=== PATIENT | male | born 1990 | race Caucasian/White ===

== ENCOUNTER 2019-11-13 20:41 | Emergency (ER) | payer SELFPAY ==
[2019-11-13] MEDS ORDERED: Bacitracin Oint 1 GM U/D Packet TOP ONE (21:06)
--- NOTE | 2019-11-13 21:07 | EDM.PDOC ---
ED HPI GENERAL MEDICAL PROBLEM - General Chief Complaint: Laceration Stated Complaint: LACERATION TO HEAD Time Seen by Provider: 11/13/19 20:50 Source of Information: Reports: Patient History Limitations: Reports: No Limitations - History of Present Illness INITIAL COMMENTS - FREE TEXT/NARRATIVE: 28-year-old male was sitting in a rifle when the scope kicked back and cut him between his eyes on the lower forehead. He has a headache and it bled so he wanted it checked. No active bleeding at this time. No loss of consciousness or visual changes. Mild nausea. Onset: Sudden Duration: Hour(s): (About an hour and a half ago) Location: Reports: Head Associated Symptoms: Reports: Other (Mild nausea and headache) Headache Pain Score (Numeric/FACES): 7 - Related Data Allergies Allergy/AdvReac Type Severity Reaction Status Date / Time No Known Allergies Allergy Verified 11/13/19 20:51 Home Meds: Home Meds NK [No Known Home Meds] 11/13/19 [History] Past Medical History Musculoskeletal History: Reports: Fracture - Past Surgical History Musculoskeletal Surgical History: Reports: ORIF Social & Family History - Tobacco Use Smoking Status *Q: Current Every Day Smoker Years of Tobacco use: 10 Packs/Tins Daily: 0.2 - Caffeine Use Caffeine Use: Reports: Coffee - Recreational Drug Use Recreational Drug Use: Yes ED ROS GENERAL - Review of Systems Review Of Systems: See Below Constitutional: Denies: Fever, Chills HEENT: Denies: Vision Change Respiratory: Denies: Shortness of Breath GI/Abdominal: Reports: Nausea. Denies: Vomiting Skin: Reports: No Symptoms Neurological: Reports: Headache ED EXAM, SKIN/RASH Exam: See Below Exam Limited By: No Limitations General Appearance: Alert, No Apparent Distress Eye Exam: Bilateral Eye: EOMI, Normal Inspection Head: Other (Patient has a 2 cm slightly curved laceration between the eyebrows on the lower forehead. There is no active bleeding, the wound is not open and edges are aligned perfectly) Course - Vital Signs Last Recorded V/S: Last Vital Signs Temp 98.1 F 11/13/19 20:55 Pulse 85 11/13/19 20:55 Resp 18 11/13/19 20:55 BP 143/88 H 11/13/19 20:55 Pulse Ox 97 04/15/20 20:55 - Orders/Labs/Meds Meds: Medications Discontinued Medications Generic Name Dose Route Start Last Admin Trade Name Froilan PRN Reason Stop Dose Admin Bacitracin 1 dose 11/13/19 21:06 11/13/19 21:09 Bacitracin Oint 1 Gm TOP 11/13/19 21:07 1 dose ONETIME ONE Administration - Re-Assessments/Exams Free Text/Narrative Re-Assessment/Exam: 11/13/19 21:06 Explained to the patient that this does not need repair, a small amount of bacitracin was applied with a Band-Aid and he is to keep it covered and clean while healing. Ibuprofen for headaches will be helpful. Departure - Departure Time of Disposition: 21:29 Disposition: Home, Self-Care 01 Clinical Impression: Laceration of forehead Qualifiers: Encounter type: initial encounter Qualified Code(s): S01.81XA - Laceration without foreign body of other part of head, initial encounter - Discharge Information Instructions: Laceration Care, Adult Referrals: PCP,None [Primary Care Provider] - Forms: ED Department Discharge Care Plan Goals: Keep wound covered and clean while healing, ibuprofen for headaches would be helpful and increase activity as tolerated. Return if concerns of infection or not healing satisfactorily. Sepsis Event Note - Evaluation Sepsis Screening Result: No Definite Risk - Focused Exam Date Exam was Performed: 11/16/19 Time Exam was Performed: 07:28
== END 2019-11-13 21:29 | disposition home or self-care (01) ==
LOC: JP.ED 20:41
DX: S01.81XA Laceration without foreign body of other part of head, initial encounter (principal); F17.210 Nicotine dependence, cigarettes, uncomplicated; W22.8XXA Striking against or struck by other objects, initial encounter
CPT/HCPCS: 99282; 99283